=== PATIENT | female | born 1975 | race Caucasian/White ===

== ENCOUNTER 2017-10-23 10:49 | Emergency (ER) | payer SELFPAY ==
[2017-10-23 11:40] VITALS: BP 132/96; PULSE 108; TEMP 98.6; BMI 26.5
[2017-10-23] MEDS ORDERED: DIPHTH,PERTUSS(ACELL),TET 0.5 ML DISP.SYRIN IM ONE (11:49)
--- NOTE | 2017-10-23 11:49 | PDOC ---
History of Present Illness - General Chief Complaint: Laceration Stated Complaint: LEFT FORE HEAD LACERATION Time Seen by Provider: 10/23/17 10:59 - History of Present Illness Initial Comments: 10/23/17 12:59 The patient is a 42 year old female with no significant PMH who presents for evaluation of a head laceration following a fall. The patient reports that she had a few drinks the yesterday evening and tripped over her feet and struck her head on the edge of a door and sustained a laceration to her left forehead. She denies any LOC at the time of the event and since then denies any headache, weakness, numbness or tingling. She denies SOB, chest pain, nausea, vomiting, or changes with urination or bowel movements as well. Past History - Past Medical History Allergies/Adverse Reactions: Allergies Allergy/AdvReac Type Severity Reaction Status Date / Time No Known Allergies Allergy Verified 10/23/17 10:51 Home Medications: Ambulatory Orders Albuterol Sulfate Inhaler - [Ventolin Hfa Inhaler -] 1 puff IH PRN PRN 10/23/17 Cephalexin Monohydrate [Keflex -] 500 mg PO BID #10 capsule 10/23/17 COPD: No - Suicide/Smoking/Psychosocial Hx Smoking History: Never smoked Have you smoked in the past 12 months: No Information on smoking cessation initiated: No Hx Alcohol Use: Yes (SOCIAL) Drug/Substance Use Hx: No Substance Use Type: Alcohol Review of Systems - Review of Systems Comments:: 10/23/17 13:04 Constitutional: No fevers, chills, fatigue, malaise HEENT: Laceration to the left forehead and scalp. No Rhinorrhea, nasal congestion, visual changes Cardiovascular: No chest pain, syncope, palpitations, lightheadedness Respiratory: No Cough, SOB, Hemoptysis, Gastrointestinal: No Abdominal pain, Nausea, Vomiting, Constipation, Diarrhea, Melena Genitourinary: No Dysuria, Frequency, Urgency, Hesitancy, Hematuria, Flank pain Musculoskeletal: No Myalgia, arthralgia Skin: No rashes, itching, bruising, pallor Neurologic: No Headache, Dizziness, Numbness, Weakness, or Tingling Psychiatric: No Hallucinations. No SI or HI *Physical Exam - Vital Signs Last Vital Signs Temp Pulse Resp BP Pulse Ox 98.6 F 108 H 20 132/96 96 03/03/18 10:50 10/23/17 10:50 10/23/17 10:50 10/23/17 10:50 10/23/17 10:50 - Physical Exam Comments: 10/23/17 13:05 General Appearance: Nourished. No Apparent Distress HEENT: EOMI, ELYSIA. 6cm deep laceration to the left scalp and forehead with visible bone. No Pharyngeal Erythema, Tonsillar Exudate, Tonsillar Erythema Neck: No Cervical Lymphadenopathy Respiratory/Chest: Lungs Clear, Normal Breath Sounds. No Crackles, Rales, Rhonchi, Wheezing Cardiovascular: Regular Rhythm, Regular Rate. No Murmur, Gallops, Rubs Gastrointestinal/Abdominal: Normal Bowel Sounds, Soft. No Guarding, Rebound, Tenderness Musculoskeletal: No CVA Tenderness Extremity: Normal Capillary Refill Integumentary: Normal Color, Dry, Warm Neurologic: wire tinner II-XII NML intact, Fully Oriented, Alert, Normal Mood/Affect, Normal Response, Motor Strength 5/5. Normal Finger to Nose and Heel to [place] Procedures - Laceration/Wound Repair Left Head Wound Length: 5.0 to 7.5 cm Wound Explored: clean, no foreign body present Wound's Depth, Shape: superficial, linear Irrigated w/ Saline: Yes Anesthesia: 1% Lidocaine Amount of Anesthetic (ccs): 10 Wound Repaired With: Sutures Suture Size/Type: 5:0, 4:0, nylon Number of Sutures: 13 Layer Closure: Yes Sterile Dressing Applied: Yes ED Treatment Course - RADIOLOGY Radiology Studies Ordered: Category Date Time Status HEAD CT WITHOUT CONTRAST [CT] Stat CT Scan 10/23/17 11:24 Ordered Medical Decision Making - Medical Decision Making 10/23/17 13:07 The patient is a 42 year old female with no significant PMH who presents for evaluation of a head laceration following a fall. The patient has a normal neurological exam without any neurological findings. Head CT was obtained given the patient's mechanism and was negative for any acute pathology as read by our radiologist. We repaired the patient's laceration with 13 nylon sutures with good layer closer and bacitracin was applied. Patient received her tetanus booster shot here in the ED. We discussed wound care with the patient as well as the need to return to the ER to have the sutures removed in 7 days. We discussed return precautions as well including fevers, chills, redness or worsening pain to the wound. We will discharge with prophylactic antibiotics given the age of the wound. We discussed the plan with the patient who voiced understanding and is agreeable with the plan. *DC/Admit/Observation/Transfer Diagnosis at time of Disposition: Laceration - Discharge Dispostion Disposition: HOME Condition at time of disposition: Good Admit: No - Prescriptions Prescriptions: Cephalexin Monohydrate [Keflex -] 500 mg PO BID #10 capsule - Referrals - Patient Instructions Printed Discharge Instructions: DI for Laceration Repair Additional Instructions: Please return to the ER if you experience concerning or worsening symptoms including worsening fevers, chills, redness or warmth to the area, or worsening pain. Your head CT was normal here in the ER. We repaired your laceration with 13 stitches which should be removed in 7 days. Please keep them dry for 48 hours after which you may cleanse them gently with soap and water. You may use a light coating of bacitracin for 3-4 days as well. Please keep the wound as clean as possible. We have also sent a prescription for antibiotics to your pharmacy which you should take twice a day for 5 days. Please return to the ER in 7 days to have your wound checked and the sutures removed. - Post Discharge Activity
--- NOTE | 2017-10-23 13:11 | PDOC ---
Attending Attestation - Resident Resident Name: Demetrius Lizarraga - ED Attending Attestation I have performed the following: I have examined & evaluated the patient, The case was reviewed & discussed with the resident, I agree w/resident's findings & plan - HPI HPI: 10/23/17 13:06 Patient was straining last night and fell against a door around midnight. She bumped her head and got a laceration. She denies loss of consciousness. She denies any headache. There is no nausea or vomiting. There is no visual change. There is no neck pain. There is no numbness or weakness on either side of her body. She has no difficulty with her gait. She denies taking any antiplatelet agents or anticoagulants. - Physicial Exam PE: 10/23/17 13:07 Patient is awake, alert, and fully oriented. Detailed neurological examination is normal. Pupils are equal, round and reactive to light with normal extraocular movements. Neck is supple without tenderness or pain on range of motion. Motor and sensory exam is normal. Gait is steady. There is an odor of alcohol on the patient's breath. Skin examination is notable for a deep laceration on the frontal scalp extending to the forehead. - Medical Decision Making 10/23/17 13:08 Impression: Closed head trauma with deep laceration of the scalp and forehead. Patient was drinking. Given the deep laceration and the alcohol, CT scan of the head was performed. CT scan shows no skull fracture and no intracranial injuries. Wound repair was performed by Dr. Lizarraga under my direction. Patient will return for suture removal to her primary care physician in 7 days. Tetanus prophylaxis was updated. Patient will be discharged on Keflex for prophylaxis to prevent infection given that the wound was approximately 12 hours old upon presentation.
[2017-10-23] MEDS ORDERED: CEPHALEXIN MONOHYDRATE 500 MG CAPSULE (UD) ONE (13:13)
[2017-10-23] MEDS ORDERED: ACETAMINOPHEN 325 MG TABLET (FP) PO ONE (13:13)
[2017-10-23] MEDS ORDERED: ACETAMINOPHEN 500 MG TABLET (FP) ONE (13:13)
[2017-10-23] MEDS ORDERED: CEPHALEXIN MONOHYDRATE 500 MG CAPSULE (UD) PO ONE (13:13)
== END 2017-10-23 13:22 | disposition home or self-care (01) ==
LOC: FER 10:49
PROC: 0HQ1XZZ Repair Face Skin, External Approach (ICD-10-PCS; principal; 2017-10-23)
DX: S01.81XA Laceration without foreign body of other part of head, initial encounter (principal); W18.09XA Striking against other object with subsequent fall, initial encounter; Y93.89 Activity, other specified; Y92.9 Unspecified place or not applicable
CPT/HCPCS: 70450-TC; 90715; 99283-25

== ENCOUNTER 2017-11-01 11:25 | Emergency (ER) | payer OTHER ==
--- NOTE | 2017-11-01 11:29 | PDOC ---
Suture Removal/Wound Check HPI - History of Present Illness Chief Complaint: Suture/Staple Removal(Here) Stated Complaint: SUTURE REMOVAL Time Seen by Provider: 11/01/17 11:29 History Source: Yes: Patient Exam Limitations: Yes: No Limitations Treated at: [facility] ED Date of Last ED visit: 10/23/17 - Onset of Previous Treatment Date of Occurence: 10/23/17 Comment:: 11/01/17 11:48 42 yo F s/p fall with head trauma and laceration Left forehead laceration s/p suture repair Pt took antibiotics, no local infection, no erythema, no drainage 10/23/17 13:04 Constitutional: No fevers, chills, fatigue, malaise HEENT: Laceration to the left forehead and scalp. No Rhinorrhea, nasal congestion, visual changes Skin: Yes: sututre No: surrounding erythema or drainage 10/23/17 13:05 General Appearance: Nourished. No Apparent Distress HEENT: EOMI, ELYSIA. 6cm laceration, well approximated 13 sutures Integumentary: Normal, no erythema, no drainage Neurologic: filenet developer II-XII NML intact, Fully Oriented, Alert, Normal Mood/Affect, Normal Response, Motor Strength 5/5. Normal Finger to Nose and Heel to [place] Past History - Past Medical History Allergies/Adverse Reactions: Allergies Allergy/AdvReac Type Severity Reaction Status Date / Time No Known Allergies Allergy Verified 11/01/17 11:27 Home Medications: Ambulatory Orders Albuterol Sulfate Inhaler - [Ventolin Hfa Inhaler -] 1 puff IH PRN PRN 10/23/17 COPD: No - Suicide/Smoking/Psychosocial Hx Smoking History: Never smoked Have you smoked in the past 12 months: No Hx Alcohol Use: Yes (SOCIAL) Drug/Substance Use Hx: No Substance Use Type: Alcohol Medical Decision Making - Medical Decision Making 11/01/17 11:51 13 sutures removed Pt anxious during suture removal Will discharge to home *DC/Admit/Observation/Transfer Diagnosis at time of Disposition: Encounter for removal of sutures - Discharge Dispostion Disposition: HOME Condition at time of disposition: Stable Admit: No - Referrals - Patient Instructions Printed Discharge Instructions: DI for Suture Removal - Post Discharge Activity
[2017-11-01 11:32] VITALS: BP 145/79; PULSE 76; TEMP 98.4; BMI 27.4
== END 2017-11-01 12:14 | disposition home or self-care (01) ==
LOC: FER 11:25
DX: Z48.02 Encounter for removal of sutures (principal)
CPT/HCPCS: 99281-25